=== PATIENT | male | born 1950 | race Caucasian/White ===

== ENCOUNTER → 2016-11-13 11:49 | Outpatient (CLI) | payer BC ==
--- NOTE | 2016-11-14 12:31 | EC ---
PATIENT:JACOBY WALLER DATE OF SERVICE: 11/13/16 SEX: M MEDICAL RECORD: [id number] DATE OF : [birth year] LOCATION:D.[facility] [place] AGE OF PATIENT: 65 ADMISSION DATE: 11/13/16 REFERRING PHYSICIAN: INTERPRETING PHYSICIAN: ADEEL GARCIA MD ECHOCARDIOGRAM REPORT ECHO CHARGES 4 ECHO COMPLETE CLINICAL DIAGNOSIS: CP ECHOCARDIOGRAPHIC MEASUREMENTS (adult normal given) AC root (d.<3.7cm) 3.4 cm LV Septum d (<1.2 cm> 1.3 cm Valve Excursion 2.2 cm LV Septum (systole) 1.8 cm Left Atria (s.<4.0cm> 3.0 cm LVPW d(<1.2cm) 1.4 cm RV (d.<2.3cm) 3.3 cm LVPW (sytole) 2.0 cm LV diastole(<5.6CM) 5.7 cm MV E-F(>70mm/sec) cm LV systole 2.9 cm LVOT Diameter 1.8 cm MV exc.(>10mm) cm Est.ejection fraction (50-75%) % Pericardial Effusion N DOPPLER: LVIT cm/sec A 60.0 cm/sec E 44.0 cm/sec LA cm/sec RVSP 39.1 mmHg LVOT 139 cm/sec AOP1/2T m/s Asc. Ao 140 cm/sec RVOT 67.0 cm/sec RA cm/sec PA 101 cm/sec AV Gradient Peak 7.8 mmHg AV Mean 4.8 mmHg AV Area 2.4 cm MV Gradient Peak 2.2 mmHg MV Mean 0.73 mmHg MV Area cm COMMENTS: Operator Cavity Pump: 1 ASHANTI PARKSOE Jacquard Card Lacer: 2 Dr. Nolan TAPE# PACS DATE OF SERVICE: 11/13/2016 FINDINGS: 1. Left ventricular chamber size is mildly dilated. Left ventricular systolic function is preserved, ejection fraction 55%. 2. Left atrium, right atrium, and right ventricular chamber sizes are within normal limits. 3. Valvular structures have normal structure and motion. 4. Doppler interrogation only reveals trace tricuspid regurgitation, no other valvular insufficiency or stenosis. ECHOCARDIOGRAM REPORT [id number] JACOBY WALLER 4. No evidence of pericardial effusion or left ventricular thrombus. TRANSINT:[id number] Voice Confirmation ID: [id number] DOCUMENT ID: [id number] ADEEL GARCIA MD at 1231 CC: [id number] DICTATION DATE: 11/13/16 1338 SOCIAL WORK SUPERVISOR: 11/13/16 2147 DEP CLI 11/13/16 [id number] [place] [address]
== END | disposition home or self-care (01) ==
LOC: D.ECHO 11:49
DX: R07.9 Chest pain, unspecified (principal)

== ENCOUNTER → 2016-11-24 19:25 | Outpatient (CLI) | payer BC ==
[2016-11-24 19:43] LABS: HEMOGLOBIN A1C 6.4 % (4.8-6.0)
[2016-11-24 19:44] LABS: CHOL - HDL RATIO 3.9 ratio (2.3-4.9); LDL-HDL RATIO 2.7 ratio (1.5-3.5)
== END | disposition home or self-care (01) ==
LOC: D.LABREF 19:25
PROVIDERS: Internal Medicine Cardiovascular Disease
DX: I10 Essential (primary) hypertension (principal)